=== PATIENT | female | born 1990 | race Caucasian/White ===

== ENCOUNTER 2019-05-24 10:37 | Emergency (ER) | payer BC, SELFPAY ==
[2019-05-24 10:45] VITALS: BP 154/105; PULSE 84; RESP 18; TEMP 37.1; O2SAT 100
--- NOTE | 2019-05-24 10:47 | ED.URI ---
HPI - URI/Sore Throat General Chief Complaint: Upper Respiratory Infection Stated Complaint: cough Time Seen by Provider: 05/24/19 10:47 Source: patient and RN notes reviewed History of Present Illness HPI Narrative: Patient is a 28-year-old female presents the urgent care with complaints of cough and postnasal drainage since Friday. Patient states that she has some chest tightness. Saw her PCP recently and was called in Tylenol with codeine and albuterol. Patient was unsure of why the Tylenol with codeine was called in and was explained that the codeine will help with her cough. Patient verbalizes her understanding. Denies of any fever. No other acute complaints. No acute distress noted. Patient read the plan of care. Related Data Home Medications Medication Instructions Recorded Confirmed acetaminophen-codeine 1 tablet PO Q8H PRN 05/24/19 05/24/19 albuterol sulfate 2 puff INHALATION QID PRN 05/24/19 05/24/19 lisinopril-hydrochlorothiazide 1 tablet PO DAILY 05/24/19 05/24/19 norgestimate-ethinyl estradiol 1 tablet PO DAILY 05/24/19 05/24/19 [Tri-Sprintec (28)] sertraline 50 mg PO DAILY 05/24/19 05/24/19 Allergies Allergy/AdvReac Type Severity Reaction Status Date / Time No Known Allergies Allergy Verified 05/24/19 10:58 Review of Systems Review of Systems: Narrative: CONSTITUTIONAL: Denies fever, chills, or sweats. EYES: Denies visual changes, redness, or discharge. ENT: Reports of postnasal drainage CARDIOVASCULAR: Denies chest pain, palpitations, or edema. RESPIRATORY: Reports of dry cough without dyspnea GASTROINTESTINAL: Denies abdominal pain, nausea, vomiting, or diarrhea. GENITOURINARY: Denies dysuria or hematuria. SKIN: Denies rash or itching. MUSCULOSKELETAL: Denies back pain, joint pain, or myalgia. NEUROLOGIC: Denies headache, numbness, or weakness. All other systems reviewed are negative, except as documented in HPI. PMFSH Comments At the time of my signature, I reviewed and agree with the nursing past medical, surgical, social, and family history. There is no relevant family history pertinent to the patient complaint. Exam Narrative: Exam Narrative: GENERAL: This is a well-nourished, well-developed patient, in no apparent distress. HEAD: normocephalic, atraumatic. EYES: PERRL. Sclera clear/white. Vision is grossly intact. EARS: External ears normal, auditory canals clear and without drainage, TMs normal without perforation. Hearing grossly intact. NOSE: External nose normal with no obvious nasal discharge, nares without redness, no rhinorrhea. THROAT: Mucous membranes moist, posterior pharynx clear. Moderate postnasal drainage NECK: Neck supple CARDIOVASCULAR: Regular rate and rhythm without murmurs, gallops, or rubs. RESPIRATORY: Harsh noted dry cough. Clear to auscultation. Breath sounds equal bilaterally. No wheezes, rales, or rhonchi. SKIN: warm, intact with no suspicious lesions or rash, good texture and turgor. NEURO: awake, alert, and oriented to person, place and time. There were no obvious focal neurologic abnormalities. EXTREMITIES: No clubbing, cyanosis, or edema. Course Vital Signs Vital signs: Vital Signs Temperature 98.7 F 05/24/19 10:45 Pulse Rate 84 05/24/19 10:45 Respiratory Rate 18 05/24/19 10:45 Blood Pressure 154/105 H 05/24/19 10:45 Pulse Oximetry 100 05/24/19 10:45 Temperature 98.7 F 05/24/19 10:45 Pulse Rate 84 05/24/19 10:45 Respiratory Rate 18 05/24/19 10:45 Blood Pressure 154/105 H 05/24/19 10:45 Pulse Oximetry 100 05/24/19 10:45 Reviewed?patient is informed that they may have pre-hypertension or hypertension based on a blood pressure reading in the department. I recommend the patient call the primary care provider listed on their discharge instructions or a physician of their choice this week to arrange follow-up for further evaluation of possible pre-hypertension or hypertension. MDM - URI/Sore Throat MDM Narrative Medical
== END 2019-05-24 11:10 | disposition home or self-care (01) ==
PROVIDERS: Emergency Provider Nurse Practitioner Family
DX: J06.9 Acute upper respiratory infection, unspecified (principal); I10 Essential (primary) hypertension; F41.9 Anxiety disorder, unspecified; F32.9 Major depressive disorder, single episode, unspecified
CPT/HCPCS: 99211; G0463

== ENCOUNTER → 2022-12-26 11:01 | Outpatient (CLI) | payer BC, OTHER, SELFPAY ==
--- NOTE | ~2022-12-26 | US_ITS ---
Pelvic ultrasound. Clinical History: Pelvic pain Technique: Realtime transabdominal and transvaginal scanning of the pelvis was performed. Color flow Doppler and Doppler spectral analysis were performed. Findings: The uterus is anteverted. The endometrial stripe has a thickness of 4 mm. No focal mass is identified. The right ovary measures 2.8 x 2.1 x 2.1 cm. No significant right ovarian or adnexal mass is seen. The left ovary measures 2.4 x 1.5 x 2.1 cm. No significant left ovarian or adnexal mass is seen. Vascular flow present in both ovaries on Doppler spectral analysis. There is no evidence of free fluid in the cul de sac. Impression: Unremarkable pelvic ultrasound. Reviewed, dictated and finalized at [facility]. Impression: Unremarkable pelvic ultrasound.
== END ==
PROVIDERS: PCP Family Medicine; Visit Provider Obstetrics & Gynecology
DX: R10.2 Pelvic and perineal pain (principal)
CPT/HCPCS: 76830; 76856

== ENCOUNTER 2022-12-26 11:21 | Outpatient (CLI) | payer BC, OTHER, SELFPAY ==
[2022-12-26 19:09] LABS: Basophils Percent Auto 0.7 % (0.2-1.2); Eosinophils Absolute Auto 0.1 K/mm3 (0-0.3); Eosinophils Percent Auto 1.7 % (0-4.4); Hematocrit 40.3 % (37.0-47.0); Hemoglobin 13.4 g/dL (12.0-15.0); Immature Granulocyte Absolute 0.01 K/mm3 (0.00-0.031); Immature Granulocyte Percent A 0.2 % (0-0.5); Lymphocytes Absolute Auto 1.56 K/mm3 (0.9-3.2); Lymphocytes Percent Auto 37.7 % (18.3-44.2); Mean Corpuscular HGB Conc 33.3 g/dl (32-36); Mean Corpuscular Volume 90.4 fl (80-100); Mean Platelet Volume 11.7 fl (7.4-10.4); Monocytes Absolute Auto 0.3 K/mm3 (0.1-0.6); Monocytes Percent Auto 6.3 % (2.6-8.5); Neutrophils Absolute Auto 2.2 K/mm3 (1.3-6.7); Neutrophils Percent Auto 53.4 % (45.5-73.1); Platelet Count Result 227 k/mm3 (150-375); Red Blood Count 4.46 M/mm3 (4.2-5.4); Red Cell Distribution Width 12.3 % (11.5-14.5); White Blood Count 4.1 K/mm3 (4.5-10.0)
[2022-12-26 19:31] LABS: Beta HCG Quantitative < 2.39 mIU/ML
[2022-12-26 20:26] LABS: Iron 85 ug/dL (37-170)
[2022-12-26 20:35] LABS: Percent Iron Saturation 26 % (20-50)
[2022-12-30 11:12] LABS: Testosterone Total 23 ng/dL (2-45)
[2023-01-01 06:01] LABS: FSH 8.8 mIU/mL (***); Progesterone 0.3 ng/mL (***)
[2023-01-03 22:26] LABS: Estradiol, Ultrasensitive 55 pg/mL
== END 2022-12-26 11:22 | disposition home or self-care (01) ==
LOC: ANHGOSHLAB 11:24
PROVIDERS: PCP Family Medicine; Visit Provider Obstetrics & Gynecology
DX: N92.0 Excessive and frequent menstruation with regular cycle (principal); R30.0 Dysuria
CPT/HCPCS: 36415; 82670; 83001; 83540; 83550; 84144; 84146; 84403; 84443; 84702; 85025; 87086

== ENCOUNTER 2023-02-03 00:44 | Day surgery (SDC) | payer BC, OTHER, SELFPAY ==
[2023-01-14 12:58] VITALS: BMI 21.6
--- NOTE | 2023-01-14 13:21 | SUR.PREOP ---
Addendum entered by Karina Hendricks RN 01/27/23 09:16: PT TO ARRIVE AT 1030 ON 02/03/23 FOR SURGERY AT 1230. Original Note: Report to the Outpatient Waiting Room, entrance under the green pavilion located off [facility], at time 1000 on date 01/20/23. Planned Procedure Time: 1200. Time changes happen often and if your time is changed the preop area will call you the afternoon before. - You and your visitor will be asked to self-screen and do not enter if you have any COVID symptoms. - A mask is optional within the hospital at this time. Patients may have clear liquids (water, carbonated beverages, clear teas, apple juice) until 3 hours prior to surgery with a maximum of 20 ounces- 0900. - No food from midnight until time of surgery - Infants may have breast milk until 4 hours before surgery, formula 6 hours prior to surgery. - Children will be allowed to drink immediately following surgery. If applicable, please bring a bottle or sippy cup to assist with drinking. Juice, water, soda, and popsicles are readily available. For infants on formula, please bring formula the day of surgery. Pacifiers are allowed. Take the following medications with a SIP of water the morning of surgery: Labetalol DO NOT STOP ANY OF YOUR OTHER PRESCRIPTION MEDICATIONS PRIOR TO SURGERY ?EXCEPT THE FOLLOWING Medications to discontinue per physician N/A Please no make-up, nail afghan, hairspray, perfume, deodorant, or body powder the day of surgery. No jewelry (including any body piercings) or valuables the day of surgery, leave them at home. Please take a shower or bath the night before, or the morning of, surgery with an antibacterial soap. Wear comfortable, loose fitting clothing. Children are encouraged to wear pajamas. - Jewelry must be removed prior to entering the operating room. Rings and piercings that are not removed may be cut off. - The hospital will not accept responsibility for valuables. - Please leave all valuables, including medications, at home the day of surgery. If you are going home after surgery, a licensed tank truck driver must drive you home. - NO public transportation without another adult if you receive anesthesia. - We recommend that an adult stay with you for 24 hours following discharge. - We also recommend that you do not drive, make important decision, drink alcoholic beverages, or take any drugs that were not prescribed by your health care provider for at least 24 hours after your discharge time. For Pediatric surgeries, we recommend two adults accompany the child home. Follow any additional instructions given to you from your surgeon. If you or anyone in your household have experienced Covid symptoms in the past week, please notify your surgeon or the nurse liaison at the phone number below for possible testing. Telephone instructions given to Awa and asked if any additional questions and then verbalized understanding. Patient advised to call surgeon office or pre surgery nurse liaison [phone] if any additional questions.
--- NOTE | 2023-01-27 09:16 | PC.NURSE ---
Pt states no changes in medications or health history since initial interview. New pre-op instructions reviewed with pt. Pt denies further questions at this time.
--- NOTE | 2023-02-02 17:29 | PM.IMHP ---
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 She had her son about a year ago; normal , uncomplicated except for anemia. She has been breast feeding, but is down to one feed per day. She reports every month since delivery, she has had heavy periods. She will bleed for up to 14 days; she is currently on day 19 of bleeding. She will pass quarter sized clots. She feels tired/fatigued but no overt symptoms of anemia. Her has a vasectomy. She had previously been on contraception but it affects her mood (has tried different pills and shot). 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 Review of Systems Constitutional: Constitutional: Denies chills, Denies fever(s) and Denies headache(s) Eyes: Eyes: Denies change in vision ENT: Denies dizziness and Denies headache(s) Cardiovascular: Cardiovascular: Denies chest pain and Denies dyspnea Respiratory: Respiratory: Denies cough and Denies dyspnea Gastrointestinal: Gastrointestinal: Denies abdominal pain and Denies change in stool character Genitourinary: Genitourinary: Reports abnormal vaginal bleeding, Reports menorrhagia, Reports dysmenorrhea, Denies pelvic pain, Denies vaginal discharge, Denies vaginal odor and Denies vaginal pruritus Neurologic: Denies dizziness and Denies headache(s) Psychiatric: Psychiatric: Denies anxiety and Denies depression [facility] Past Medical History Medical History (Updated 02/02/23 @ 17:32 by Cari Avalos MD) Anxiety High blood pressure Surgical History Surgical History (Updated 12/26/22 @ 10:02 by Karol Silva MA) History of appendectomy History of placement of ear tubes History of tonsillectomy and adenoidectomy Family History Family History (Updated 12/26/22 @ 10:03 by Karol Silva MA) Mother Cervical cancer, Onset Age: 32 Other Afib Social History Social History (Updated 12/26/22 @ 10:03 by Karol Silva MA) Smoking packs per day: 1 Smoking cigarettes per day: 20.0 Years smoked: 10 Smoking pack-years: 10.00 Smoking status: Former smoker Tobacco type: cigarettes Alcohol intake: current Alcohol use details: 1 per month Substance use: never Substance use type: does not use Lack of Transportation: No Lack of Food: Never True Current Housing: I Have Housing Concerned About Future Housing: No Difficulty Paying Gas/Electric Bills: No Difficulty Paying for Meds: No Currently Unemployed: No Education: Associate Degree Difficulty w/ Childcare or Family Care: No Living arrangements: with family Occupation/Education: occupation Gender identity (if verbalized by the patient): Female Sexual Orientation (if Verbalized by the Patient): Straight or Heterosexual Spiritual care concerns: No Meds Home Medications and Allergies Home Medications Medication Instructions Recorded Confirmed Type sertraline 50 mg tablet 50 mg PO DAILY 05/24/19 01/27/23 History labetalol 100 mg tablet 100 mg PO DAILY 12/26/22 01/27/23 History norethindrone 1.5 mg-ethinyl 1 tablet PO DAILY #56 tabs 12/27/22 01/27/23 Rx estradiol 30 mcg(21)/iron 75 mg(7) tablet (Junel FE 1.5/30 (28)) Allergies Allergy/AdvReac Type Severity Reaction Status Date / Time No Known Allergies Allergy Verified 01/27/23 09:16 Exam Const: General: cooperative, healthy appearing, comfortable and no acute distress Orientation/consciousness: patient oriented x3 Resp: Effort & Inspection: normal respiratory effort Cardio: Rate: regular rate GI: Inspection: normal to inspection GI Palp: No abdominal tenderness and Yes Soft to palpation : Other: deferred to OR Skin: General skin exam: normal color Neuro: General: patient oriented x3 Extrem: General: normal to inspection Psych: Appearance: grossly normal Affect: normal affect Attitude: cooperative A
--- NOTE | 2023-02-03 07:18 | WPDHPUPDATE1 ---
History and Physical Update Update Date/Time: 02/03/23 07:18 History and Physical has been reviewed, including an updated exam of the patient. There are NO changes in the patient's condition. Risks, benefits, and alternatives have been discussed and questions answered. Patient agrees to proceed with hysteroscopy and D&C.
[2023-02-03] MEDS: ACETAMINOPHEN 500 MG TABLET 1000 MG PO (10:55)
[2023-02-03] MEDS: LACTATED RINGERS 1,000 ML 30 ML IV CONT (10:55)
--- NOTE | 2023-02-03 10:57 | WPDANESEPPF ---
Anes - Initial Pre Proc Eval Procedure: Operation Date: 02/03/23 12:30 Proposed Procedures p Hysteroscopy Dilation and Curettage - Cari Avalos MD Date/Time: 02/03/23 10:57 Surgeon: Cari Avalos MD Pre Op Diagnosis: Abnormal Uterine Bleeding Patient Data Age: 32 Gender: F Height: 1.65 m Weight: 59 kg Allergies Allergy/AdvReac Type Severity Reaction Status Date / Time No Known Allergies Allergy Verified 01/27/23 09:16 Home Medications Medication Instructions Recorded Confirmed Type sertraline 50 mg tablet 50 mg PO DAILY 05/24/19 01/27/23 History labetalol 100 mg tablet 100 mg PO DAILY 12/26/22 01/27/23 History norethindrone 1.5 mg-ethinyl 1 tablet PO DAILY #56 tabs 12/27/22 01/27/23 Rx estradiol 30 mcg(21)/iron 75 mg(7) tablet (June FE 1.08/06 (28)) Patient hx anesthesia problems: none Family hx anesthesia problems: none Results Review: All pre-operative results and documents have been reviewed as part of the pre-operative evaluation. [facility] Past Medical History Medical History (Updated 02/02/23 @ 17:32 by Cari Avalos MD) Anxiety High blood pressure Surgical History Surgical History (Updated 12/26/22 @ 10:02 by Karol Silva MA) History of appendectomy History of placement of ear tubes History of tonsillectomy and adenoidectomy Family History Family History (Updated 12/26/22 @ 10:03 by Karol Silva MA) Mother Cervical cancer, Onset Age: 32 Other Afib Social History Social History (Updated 12/26/22 @ 10:03 by Karol Silva MA) Smoking packs per day: 1 Smoking cigarettes per day: 20.0 Years smoked: 10 Smoking pack-years: 10.00 Smoking status: Former smoker Tobacco type: cigarettes Alcohol intake: current Alcohol use details: 1 per month Substance use: never Substance use type: does not use Lack of Transportation: No Lack of Food: Never True Current Housing: I Have Housing Concerned About Future Housing: No Difficulty Paying Gas/Electric Bills: No Difficulty Paying for Meds: No Currently Unemployed: No Education: Associate Degree Difficulty w/ Childcare or Family Care: No Living arrangements: with family Occupation/Education: occupation Gender identity (if verbalized by the patient): Female Sexual Orientation (if Verbalized by the Patient): Straight or Heterosexual Spiritual care concerns: No Anes - Eval Final PreProcedure Day of Procedure 02/03/23 10:57 Patient weight: normal Heart: regular rate and rhythm Lungs: clear to auscultation Airway: Mallampati scale class II Neurological: alert and oriented Last oral intake: >/= 8 hours ASA classification: II Emergent: no Anesthetic plan: proceed Anesthesia type and monitoring: general GIVS and standard monitoring Results Review: All pre-operative results and documents have been reviewed as part of the pre-operative evaluation. Informed Consent: The patient's anesthetic plan and its attendant risks and benefits were discussed with the patient/family/POA. Questions were solicited and answers provided to the satisfaction of the patient/family/POA.
[2023-02-03 11:01] VITALS: BP 158/96; PULSE 73; RESP 14; TEMP 36.6; O2SAT 100
[2023-02-03 11:31] VITALS: BP 140/95; PULSE 61; RESP 12; O2SAT 99
--- NOTE | 2023-02-03 11:32 | W.PM.PROC2 ---
Procedure Note - Detailed Date of Procedure 02/03/23 Pre-op Diagnosis Abnormal Uterine Bleeding Post-op Diagnosis Same Procedure Performed Hysteroscopy with D&C Surgeon Cari Avalos MD Anesthesia MAC Findings Normal cervix; uterus sounded to 8cm. Normal cavity; diffusely thickened endometrium noted throughout. Bilateral tubal ostia visualized. Good hemostasis at end of case. Description of Procedure Awa was taken to the operating room where she was placed under sedation without complications. She was then prepped and draped in the usual sterile fashion in the dorsal lithotomy position with her legs in low Wang stirrups. A time-out was performed and no perioperative antibiotics were indicated. A bivalve speculum was placed within the vagina where the cervix was easily identified. The anterior lip of the cervix was grasped with a single-tooth tenaculum. The uterus was sounded and the cervix was then serially dilated to allow for the hysteroscope. The hysteroscope was advanced into the uterine cavity with the above findings noted. A curettage was then performed until a good uterine cry was felt throughout the uterus. The hysteroscope was once again advanced into the uterine cavity where it was noted to be normal. Good hemostasis was noted. All instruments were removed from the vagina. Sponge, lap, instrument, and needle counts were correct at the end of the procedure. Patient was awoken from anesthesia and taken to recovery with plans of same-day discharge home. Estimated Blood Loss 5 IV Fluids 500 (Fluid deficit: 40cc) Pathology Yes (endometrial curettings) Complications No immediate complications Condition Stable Disposition Floor [facility] Billing Surgery - Charge Forward: Surgery Billing
[2023-02-03 12:00] VITALS: BP 135/99; PULSE 56; RESP 12; O2SAT 100
[2023-02-03 12:30] VITALS: BP 153/104; PULSE 70; RESP 12
[2023-02-03] MEDS: oxyCODONE HCL (*CRX) 5 MG TAB IR PO (12:36)
[2023-02-03 13:00] VITALS: BP 150/98; PULSE 68; RESP 20
== END 2023-02-03 13:05 | disposition home or self-care (01) ==
PROVIDERS: PCP Family Medicine; Visit Provider Obstetrics & Gynecology
PROC: 0U5B8ZZ Destruction of Endometrium, Via Natural or Artificial Opening Endoscopic (ICD-10-PCS; CPT 58563; principal; 2023-02-03 12:30)
DX: N92.0 Excessive and frequent menstruation with regular cycle (principal); N85.8 Other specified noninflammatory disorders of uterus; F41.9 Anxiety disorder, unspecified; I10 Essential (primary) hypertension; Z87.891 Personal history of nicotine dependence; Z80.49 Family history of malignant neoplasm of other genital organs
CPT/HCPCS: 58558; 88305; A9270; J1100; J2250; J2405; J2704; J3010; J7120

== ENCOUNTER 2023-03-11 13:45 | Emergency (ER) | payer BC, OTHER, SELFPAY ==
[2023-03-11 14:11] VITALS: BP 158/102; PULSE 97; RESP 16; TEMP 36.5; O2SAT 100
--- NOTE | 2023-03-11 18:18 | PC.NURSE ---
no answer when pt called from waiting room
== END 2023-03-11 19:31 | disposition left against medical advice (07) ==
PROVIDERS: PCP Family Medicine
DX: N93.9 Abnormal uterine and vaginal bleeding, unspecified (principal)
CPT/HCPCS: 99199

== ENCOUNTER 2023-03-12 20:03 | Emergency (ER) | payer BC, OTHER, SELFPAY ==
[2023-03-12] VITALS (17 sets, daily range): BP systolic 142–180; BP diastolic 78–105; PULSE 72–105; RESP 13–24; TEMP 36.3; O2SAT 98–100
--- NOTE | ~2023-03-12 | XR_ITS ---
EXAMINATION: XR chest 2V DATE: 03/12/2023 21:00 INDICATION: Chest pain. Cough. TECHNIQUE: Frontal and lateral views of the chest were obtained. COMPARISON: Chest 2 views 02/14/2017 FINDINGS: There are airspace opacities in anteromedial basal segment left lower lobe, consistent with pneumonia. No pleural effusion. The heart size is normal. IMPRESSION: 1. Left lower lobe pneumonia. Reviewed, dictated and finalized at location E. WARE DEVELOPER
--- NOTE | 2023-03-12 20:06 | ECG_ITS ---
Measurements Intervals [place] Rate: 84 P: 4 OR: 144 QRS: 3 QRSD: 97 T: 21 QT: 347 QTc: 410 Interpretive Statements SINUS RHYTHM DELAYED PRECORDIAL R/S TRANSITION BASELINE ARTIFACT- I, II, AVR BORDERLINE ECG NO PREVIOUS ECG AVAILABLE FOR COMPARISON Electronically Signed On 03-13-2023 6:44:39 CAMPAIGN DEVELOPER by Kwaku Coronel D.O.
[2023-03-12 20:29] LABS: Basophils Percent Auto 0.2 % (0.2-1.2); Eosinophils Absolute Auto 0.1 K/mm3 (0-0.3); Eosinophils Percent Auto 1.6 % (0-4.4); Hematocrit 39.8 % (37.0-47.0); Hemoglobin 13.3 g/dL (12.0-15.0); Immature Granulocyte Absolute 0.02 K/mm3 (0.00-0.031); Immature Granulocyte Percent A 0.3 % (0-0.5); Lymphocytes Absolute Auto 1.69 K/mm3 (0.9-3.2); Lymphocytes Percent Auto 29.2 % (18.3-44.2); Mean Corpuscular HGB Conc 33.4 g/dl (32-36); Mean Corpuscular Hemoglobin 29.6 pg (26-34); Mean Corpuscular Volume 88.6 fl (80-100); Mean Platelet Volume 10.8 fl (7.4-10.4); Monocytes Absolute Auto 0.5 K/mm3 (0.1-0.6); Monocytes Percent Auto 9.2 % (2.6-8.5); Neutrophils Absolute Auto 3.5 K/mm3 (1.3-6.7); Neutrophils Percent Auto 59.5 % (45.5-73.1); Platelet Count Result 188 k/mm3 (150-375); Red Blood Count 4.49 M/mm3 (4.2-5.4); Red Cell Distribution Width 11.9 % (11.5-14.5); White Blood Count 5.8 K/mm3 (4.5-10.0)
[2023-03-12 20:39] LABS: INR 0.9; Partial Thromboplastin Time 28.4 SECONDS (22.3-36.8); Prothrombin Time 12.7 Seconds (11.1-14.7)
[2023-03-12 20:41] LABS: Alanine Aminotransferase 15 U/L (6-35); Albumin Level 4.5 g/dL (3.5-5.1); Alkaline Phosphatase 96 U/L (38-126); Anion Gap 11 mmol/L (8-16); Aspartate Amino Transferase 24 U/L (14-36); Bilirubin,Total 0.4 mg/dL (0.2-1.3); Blood Urea Nitrogen 22 mg/dL (7-17); Calcium 9.2 mg/dL (8.4-10.2); Carbon Dioxide 27 mmol/L (22-30); Chloride 100 mmol/L (98-107); Estimated CRCL calculation 87 ml/min; Estimated Glomerular Filt Rate > 60; Glucose 111 mg/dL (65-110); Lipase 41 U/L (23-300); Potassium 3.7 mmol/L (3.4-5.0); Sodium 138 mmol/L (137-145)
[2023-03-12 20:52] LABS: Troponin I < 0.012 ng/mL (0.000-0.034)
--- NOTE | 2023-03-12 20:52 | ED.URI ---
HPI - URI/Sore Throat General Chief Complaint: Chest Pain Stated Complaint: chest pain Time Seen by Provider: 03/12/23 20:29 Source: patient Limitations: no limitations History of Present Illness HPI Narrative: Patient is a 32-year-old female presents to the emergency department complaining of a cough. Patient states that she went to urgent care prior to this and sent her over here for further evaluation because it hurts she had a rapid heart rate and also her blood pressure was high. Patient is to history of high blood pressure has been taking medications as prescribed. Patient states for the past 3-4 days she has been experiencing a nonproductive cough in addition to runny nose and congestion and she also had a fever 2 days ago and took Tylenol last Tylenol yesterday the patient is to sick contacts and her kids having similar symptoms. patient admits to using Zyrtec regularly. Patient also states that she has been on her menstrual cycle for the past 3 days and had increased bleeding yesterday going through approximately 2-3 pads every hour throughout the day. 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 Patient denies history of blood transfusions. Patient denies chest pain, shortness of breath, abdominal pain, urinary discomfort, melena, hematochezia, diarrhea, nausea, vomiting, recent injuries, sore throat, ear pain. Related Data Home Medications Medication Instructions Recorded Confirmed sertraline 50 mg tablet 50 mg PO DAILY 05/24/19 02/26/23 Allergies Allergy/AdvReac Type Severity Reaction Status Date / Time No Known Allergies Allergy Verified 02/26/23 14:14 Review of Systems Review of Systems: A 10 system review of systems was completed on the patient and is negative except for what is stated in the HPI. Nursing and ancillary documentation was reviewed. [facility] Past Medical History Medical History Anxiety High blood pressure Surgical History Surgical History History of appendectomy History of hysteroscopy (02/03/23) Hysteroscopy with D&C History of placement of ear tubes History of tonsillectomy and adenoidectomy Family History Family History Mother Cervical cancer, Onset Age: 32 Other Afib Social History Social History Smoking packs per day: 1 Smoking cigarettes per day: 20.0 Years smoked: 10 Smoking pack-years: 10.00 Smoking status: Former smoker Tobacco type: cigarettes Alcohol intake: current Alcohol use details: 1 per month Substance use: never Substance use type: does not use Lack of Transportation: No Lack of Food: Never True Current Housing: I Have Housing Concerned About Future Housing: No Difficulty Paying Gas/Electric Bills: No Difficulty Paying for Meds: No Currently Unemployed: No Education: Associate Degree Difficulty w/ Childcare or Family Care: No Living arrangements: with family Occupation/Education: occupation Gender identity (if verbalized by the patient): Female Sexual Orientation (if Verbalized by the Patient): Straight or Heterosexual Spiritual care concerns: No Comments At time of signature, I have reviewed and agree with nursing past medical, surgical, social and family history unless otherwise noted. Please see the nursing chart for further information. There is no relevant family history pertinent to the presenting complaint. Exam Narrative: CONST: No acute distress. Well nourished. Frequently coughing throughout examination with a dry cough. HENMT: Head is normocephalic and atraumatic. Tachy mucous membranes. No posterior oropharynx erythema. EYES: No conjunctival icteru
[2023-03-12 20:55] LABS: Magnesium 2.1 mg/dL (1.6-2.3)
[2023-03-12 21:04] LABS: D Dimer 0.46 ug/mL (<0.48)
[2023-03-12] MEDS: SODIUM CHLORIDE 0.9% IV 1,000 ML 999 ML IV CONT (21:04)
[2023-03-12 21:28] LABS: SPREG INTERNAL CONTROL Positive; Serum Qual hCG Negative
[2023-03-12 21:35] LABS: Influenza A QL RT-PCR Negative (Negative); Influenza B QL RT-PCR Negative (Negative); RSV RNA, RT-PCR Negative (Negative); SARS-CoV-2 RNA PCR Negative (Negative)
[2023-03-12] MEDS: AMOXICILLIN 500 MG CAPSULE 1000 MG PO (21:47)
== END 2023-03-12 22:55 | disposition home or self-care (01) ==
PROVIDERS: Student in an Organized Health Care Education/Training Program; Emergency Provider Student in an Organized Health Care Education/Training Program; PCP Family Medicine
DX: J18.9 Pneumonia, unspecified organism (principal); J06.9 Acute upper respiratory infection, unspecified; Z20.822 Contact with and (suspected) exposure to COVID-19; I10 Essential (primary) hypertension; F41.9 Anxiety disorder, unspecified; Z96.22 Myringotomy tube(s) status; Z87.891 Personal history of nicotine dependence; R94.31 Abnormal electrocardiogram [ECG] [EKG]
CPT/HCPCS: 36415; 71046; 80053; 83690; 83735; 84443; 84484; 84703; 85025; 85380; 85610; 85730; 87637; 93005; 96360; 99284; A9270; J7030

== ENCOUNTER 2023-03-15 15:56 | Emergency (ER) | payer BC, OTHER, SELFPAY ==
--- NOTE | ~2023-03-15 | XR_ITS ---
Portable chest x-ray Comparison: 03/12/2023 Clinical History: Pneumonia Findings: Lungs are clear, without focal consolidation or pleural effusion. Cardiomediastinal silho uette is stable. Bones and soft tissues are unremarkable. Impression: Clear lungs. Reviewed, dictated and finalized at location . [employer] Impression: Clear lungs.
--- NOTE | ~2023-03-15 | CT_ITS ---
Non-contrast Head CT History: Headache Technique: Axial non-contrast imaging of the brain was performed. Dose reduction technique was used on this scan by utilizing automated exposure control and iterative reconstruction technique. The dose -length product (DLP) was 605.33 mGy-cm. Findings: There is no evidence of intracranial hemorrhage, mass lesion, or acute infarct. Brain par enchyma appears normal. The ventricles and subarachnoid spaces are normal in size. The calvarium ap pears normal. The visualized paranasal sinuses and mastoid air cells are clear. Impression: No significant abnormality seen. Reviewed, dictated and finalized at location . L MOVER Impression: No significant abnormality seen.
[2023-03-15 15:59] VITALS: BP 135/101; PULSE 81; RESP 20; TEMP 36.4; O2SAT 100
--- NOTE | 2023-03-15 16:48 | ED.HA ---
HPI - Headache General Chief Complaint: Headache Stated Complaint: headache, n/v, sob Time Seen by Provider: 03/15/23 16:29 Source: patient and family Mode of arrival: ambulatory Limitations: no limitations History of Present Illness HPI Narrative: 32 YEARS OLD WHITE FEMALE CAME TO THE EMERGENCY ROOM FROM HOME COMPLAINING OF GENERALIZED HEADACHE, INTERMITTENT COUGHING WITH VOMITING. SHE DENIES ANY FEVER, CHILLS, DIARRHEA, CHEST PAIN OR SHORTNESS OF BREATH. PATIENT IS TELLING ME THAT SHE HAD BEEN DIAGNOSED OF PNEUMONIA FEW DAYS AGO. HISTORY OF MIGRAINE HEADACHE. SHE IS NOT SURE IF THIS HEADACHE LIKE HER PREVIOUS MIGRAINE OR NOT. Related Data Home Medications Medication Instructions Recorded Confirmed sertraline 50 mg tablet 50 mg PO DAILY 05/24/19 02/26/23 Allergies Allergy/AdvReac Type Severity Reaction Status Date / Time No Known Allergies Allergy Verified 02/26/23 14:14 [facility] Past Medical History Medical History Anxiety High blood pressure Surgical History Surgical History History of appendectomy History of hysteroscopy (02/03/23) Hysteroscopy with D&C History of placement of ear tubes History of tonsillectomy and adenoidectomy Family History Family History Mother Cervical cancer, Onset Age: 32 Other Afib Social History Social History Smoking packs per day: 1 Smoking cigarettes per day: 20.0 Years smoked: 10 Smoking pack-years: 10.00 Smoking status: Former smoker Tobacco type: cigarettes Alcohol intake: current Alcohol use details: 1 per month Substance use: never Substance use type: does not use Lack of Transportation: No Lack of Food: Never True Current Housing: I Have Housing Concerned About Future Housing: No Difficulty Paying Gas/Electric Bills: No Difficulty Paying for Meds: No Currently Unemployed: No Education: Associate Degree Difficulty w/ Childcare or Family Care: No Living arrangements: with family Occupation/Education: occupation Gender identity (if verbalized by the patient): Female Sexual Orientation (if Verbalized by the Patient): Straight or Heterosexual Spiritual care concerns: No Course Vital Signs Vital signs: Vital Signs Temperature 36.4 C 03/15/23 15:59 Pulse Rate 81 03/15/23 15:59 Respiratory Rate 20 03/15/23 15:59 Blood Pressure 135/101 H 03/15/23 15:59 Pulse Oximetry 100 03/15/23 15:59 Oxygen Delivery Room Air 03/15/23 15:59 Temperature 36.4 C 03/15/23 15:59 Pulse Rate 81 03/15/23 15:59 Respiratory Rate 20 03/15/23 15:59 Blood Pressure 135/101 H 03/15/23 15:59 Pulse Oximetry 100 03/15/23 15:59 Oxygen Delivery Room Air 03/15/23 15:59 MDM - Headache MDM Narrative Medical decision making narrative: PATIENT PRESENTS WITH HEADACHE, POSSIBLE MIGRAINE, ASSOCIATED WITH NAUSEA AND VOMITING. VITAL SIGNS ON ARRIVAL STABLE PHYSICAL EXAMINATION UNREMARKABLE DIFFERENTIAL DIAGNOSIS VIRAL INFECTION, MIGRAINE HEADACHE, STRESS RELATED SYMPTOMS, URINARY TRACT INFECTION A WORKUP TODAY SHOWED NO ACUTE ABNORMALITIES INCLUDING BLOOD TEST, CHEST X-RAY WHICH SHOWED NO PNEUMONIA ALTHOUGH PATIENT HAD DIAGNOSIS OF PNEUMONIA 3 DAYS AGO, CT SCAN OF THE HEAD WITHOUT CONTRAST SHOWED NO ACUTE ABNORMALITIES Medical Records Attestation: I reviewed the patient's medical records. Lab Data Attestation: I reviewed the patient's lab results. 03/15/23 17:04 03/15/23 17:04 Labs: Lab Results 03/15/23 03/15/23 Range/Units 17:04 17:05 WBC 4.6 (4.5-10.0) K/mm3 RBC 4.54 (4.2-5.4) M/mm3 Hgb 13.4 (12.0-15.0) g/dL Hct 40.2 (37.0-47.0) % MCV 88.5 (80-100) fl MCH 29.5 (26-34) pg MCHC 33.3 (32-36) g/dl RDW 11.9 (11.5-14.5) % Plt Count 20
[2023-03-15] MEDS: diphenhydrAMINE HCl INJ 50 MG/ML VIAL IV PUSH (16:57)
[2023-03-15] MEDS: METOCLOPRAMIDE HCL INJ 10 MG/2 ML VIAL IV PUSH (16:57)
[2023-03-15] MEDS: KETOROLAC 30 MG/ML VIAL (*BKC) IV PUSH (16:57)
[2023-03-15] MEDS: ONDANSETRON INJ 4 MG/2 ML VIAL IV PUSH (16:57)
[2023-03-15] MEDS: SODIUM CHLORIDE 0.9% IV 1,000 ML 999 ML IV CONT (16:57)
[2023-03-15 17:03] VITALS: BP 128/74; PULSE 84; RESP 16; TEMP 36.7; O2SAT 100
[2023-03-15 17:10] LABS: Basophils Percent Auto 0.4 % (0.2-1.2); Eosinophils Percent Auto 0.2 % (0-4.4); Hematocrit 40.2 % (37.0-47.0); Hemoglobin 13.4 g/dL (12.0-15.0); Immature Granulocyte Absolute 0.01 K/mm3 (0.00-0.031); Immature Granulocyte Percent A 0.2 % (0-0.5); Lymphocytes Absolute Auto 1.37 K/mm3 (0.9-3.2); Lymphocytes Percent Auto 29.6 % (18.3-44.2); Mean Corpuscular HGB Conc 33.3 g/dl (32-36); Mean Corpuscular Hemoglobin 29.5 pg (26-34); Mean Corpuscular Volume 88.5 fl (80-100); Mean Platelet Volume 10.7 fl (7.4-10.4); Monocytes Absolute Auto 0.2 K/mm3 (0.1-0.6); Monocytes Percent Auto 4.5 % (2.6-8.5); Neutrophils Percent Auto 65.1 % (45.5-73.1); Platelet Count Result 209 k/mm3 (150-375); Red Blood Count 4.54 M/mm3 (4.2-5.4); Red Cell Distribution Width 11.9 % (11.5-14.5); White Blood Count 4.6 K/mm3 (4.5-10.0)
[2023-03-15 17:23] LABS: Alanine Aminotransferase 15 U/L (6-35); Albumin Level 4.5 g/dL (3.5-5.1); Alkaline Phosphatase 92 U/L (38-126); Anion Gap 9 mmol/L (8-16); Aspartate Amino Transferase 26 U/L (14-36); Bilirubin,Total 0.5 mg/dL (0.2-1.3); Blood Urea Nitrogen 19 mg/dL (7-17); Calcium 9.1 mg/dL (8.4-10.2); Carbon Dioxide 28 mmol/L (22-30); Chloride 103 mmol/L (98-107); Estimated CRCL calculation 87 ml/min; Estimated Glomerular Filt Rate > 60; Ethanol < 10 mg/dL (<10); Glucose 96 mg/dL (65-110); Potassium 3.6 mmol/L (3.4-5.0); Sodium 140 mmol/L (137-145)
[2023-03-15 17:46] LABS: Influenza A QL RT-PCR Negative (Negative); Influenza B QL RT-PCR Negative (Negative); RSV RNA, RT-PCR Negative (Negative); SARS-CoV-2 RNA PCR Negative (Negative)
[2023-03-15 18:08] VITALS: BP 135/77; PULSE 80; RESP 16; TEMP 36.6; O2SAT 99
[2023-03-15 18:36] VITALS: BP 136/78; PULSE 71; RESP 14; TEMP 36.5; O2SAT 99
== END 2023-03-15 18:38 | disposition home or self-care (01) ==
PROVIDERS: Emergency Provider Emergency Medicine; PCP Family Medicine
DX: R51.9 Headache, unspecified (principal); Z20.822 Contact with and (suspected) exposure to COVID-19; I10 Essential (primary) hypertension; F41.9 Anxiety disorder, unspecified; Z87.891 Personal history of nicotine dependence
CPT/HCPCS: 36415; 70450; 71045; 80053; 80307; 85025; 87637; 96361; 96374; 96375; 99284; J1200; J1885; J2405; J2765; J7030

== ENCOUNTER 2023-04-07 09:44 | Outpatient (CLI) | payer BC, OTHER, SELFPAY ==
[2023-04-07 10:25] LABS: Beta HCG Quantitative < 2.39 mIU/ML
== END 2023-04-07 09:45 | disposition home or self-care (01) ==
LOC: ANHLAB 09:46
PROVIDERS: PCP Family Medicine; Visit Provider Obstetrics & Gynecology
DX: N92.0 Excessive and frequent menstruation with regular cycle (principal)
CPT/HCPCS: 36415; 84702